=== PATIENT | male | born 1970 | race Two or more races ===

== ENCOUNTER 2019-07-18 16:53 | Inpatient (IN) | payer OTHER ==
[~2019-07-18] VITALS: Ht 167.6 cm; Wt 57.9 kg
[~2019-07-18 16:53] MED LIST: AMLO2.5T5 PO; BLOO1EAC91 XX; INSU100V8 SQ; [UNRECOGNIZED DRUG - CODE] XX; [UNRECOGNIZED DRUG - CODE] XX
--- NOTE | 2019-07-18 17:09 | NUR ---
DIAMOND SIZER: EKG COMPLETED.
--- NOTE | 2019-07-18 17:29 | NUR ---
FIRST CONTACT WITH PT. PT STATES "I WAS AT WORK AND I GOT BLURRED VISION, I AM DIABETIC, I MIGHT HAVE GOT DUST IN THEM" PT'S AOX4. RESPS EVEN AND UNLABORED. PT DENIES ANY OTHER SYMPTOMS. PT STATES "I CAN'T SEE ANY NOW. MY VISION WAS FINE YESTERDAY AND SUUDENLY I GOT BLURRED." BP/SPO2 MONITORS IN PLACE. CALL LIGHT WITHIN REACH. FAMILY AT BEDSIDE.
[2019-07-18] MEDS ORDERED: LABETALOL 5MG/ML, 20ML IVPush ONE (18:30)
[2019-07-18 18:43] LABS: BASOPHILS # (AUTO) 0.04 x10^3/uL (0-0.1); BASOPHILS % (AUTO) 1 % (0-1); EOSINOPHILS # (AUTO) 0.09 x10^3/uL (0-0.4); EOSINOPHILS % (AUTO) 1 % (1-7); LYMPHOCYTES # (AUTO) 1.13 x10^3/uL (1-3.4); LYMPHOCYTES % (AUTO) 18 % (22-44); MD NO; MEAN CORPUSCULAR HEMOGLOBIN 29.2 pg (27.5-34.5); MEAN CORPUSCULAR HGB CONC 33.2 g/dL (33.2-36.2); MEAN CORPUSCULAR VOLUME 87.9 fL (81-97); MONOCYTES # (AUTO) 0.35 x10^3/uL (0.2-0.8); MONOCYTES % (AUTO) 5 % (2-9); NEUTROPHILS # (AUTO) 4.78 x10^3/uL (1.8-6.8); NEUTROPHILS % (AUTO) 75 % (42-75); PLATELET COUNT 211 x10^3/uL (130-400); RED BLOOD COUNT 3.89 x10^6/uL (4.38-5.82); RED CELL DISTRIBUTION WIDTH 13.9 % (9.4-14.8)
[2019-07-18 18:54] LABS: ALBUMIN 3.5 g/dL (3.4-5.0); ANION GAP 4 mmol/L (5-15); CALCIUM 8.4 mg/dL (8.5-10.1); CHLORIDE 103 mmol/L (98-107)
--- NOTE | 2019-07-18 19:00 | NUR ---
REPORT GIVEN TO SONG REILLY.
[2019-07-18 19:10] LABS: ALANINE AMINOTRANSFERASE 29 U/L (12-78); ALKALINE PHOSPHATASE 102 U/L (45-117); BILIRUBIN,TOTAL 0.3 mg/dL (0.2-1.0); CREATININE 2.32 mg/dL (0.7-1.3); TOTAL PROTEIN 7.5 g/dL (6.4-8.2)
[2019-07-18] MEDS ORDERED: CALCIUM GLUCONATE 0.46MEQ/1ML IVPush ONE (19:30)
[2019-07-18] MEDS ORDERED: DEXTROSE 50%, 50ML SYRINGE IVPush ONE (19:30)
[2019-07-18] MEDS ORDERED: ENALAPRILAT 1.25 MG/ML, 2ML IV ONE (19:30)
[2019-07-18] MEDS ORDERED: SODIUM CHLORIDE 0.9%, 500ML IVBOLUS ONE (19:30)
[2019-07-18] MEDS ORDERED: INSULIN REGULAR 100 UNITS/ML, 3ML VIAL IVPush ONE (19:30)
[2019-07-18] MEDS ORDERED: ENALAPRILAT 1.25 MG/ML, 1ML ONE (19:36)
[2019-07-18] MEDS ORDERED: CALCIUM GLUCONATE 4.6 MEQ/10 ML ONE (19:36)
[2019-07-18] MEDS ORDERED: DEXTROSE 50%, 50ML SYRINGE ONE (19:37)
[2019-07-18] MEDS ORDERED: LABETALOL 5MG/ML, 20ML ONE (19:37)
[2019-07-18] MEDS ORDERED: INSULIN SINGLE DOSE, ER ONE (20:00)
[2019-07-18] MEDS ORDERED: ASPIRIN 325 MG TABLET EC PO ONE (20:00)
[2019-07-18] MEDS ORDERED: FLUORESCEIN OPHTHALMIC 1 MG STRIP ONE (20:04)
[2019-07-18] MEDS ORDERED: ASPIRIN 325 MG TABLET EC ONE (20:24)
[2019-07-18] MEDS ORDERED: PHENYLEPHRINE OPHTH 2.5%, 2.5ML EACHEYE ONE (20:30)
[2019-07-18] MEDS ORDERED: TROPICAMIDE OPHTH 1%, 15ML OP ONE (20:30)
[2019-07-18] MEDS ORDERED: SODIUM ZIRCONIUM CYCLOSILICATE 10 GM PO ONE (21:00)
[2019-07-18 22:17] VITALS: BP 144/83
[2019-07-18] MEDS: SODIUM CHLORIDE 0.9% 1,000 ML IV SCH (22:30)
[2019-07-18] MEDS ORDERED: hydrALAzine 20 MG/ML, 1ML IV PRN (22:30)
[2019-07-18] MEDS: DORZOLAMIDE OPHTH 2%, 10ML EACHEYE SCH (22:34)
[2019-07-18] MEDS: BRIMONIDINE TART. OPHTH 0.2%, 5ML EACHEYE SCH (22:56)
[2019-07-18] MEDS: TIMOLOL OPHTH 0.5%, 5ML EACHEYE SCH (22:56)
[2019-07-18] MEDS: LATANOPROST OPHTH 0.005%, 2.5ML EACHEYE SCH (22:56)
[2019-07-18] MEDS ORDERED: INSULIN GLARGINE 100 UNITS/ML, PEN SQ-INSULIN SCH (23:00)
[2019-07-18] MEDS ORDERED: BISACODYL 10 MG SUPP PR PRN (23:00)
[2019-07-18] MEDS ORDERED: ACETAMINOPHEN 325 MG TABLET PO PRN (23:00)
[2019-07-18] MEDS ORDERED: POLYETHYLENE GLYCOL 17 GM PACKET PO PRN (23:00)
[2019-07-18] MEDS ORDERED: ONDANSETRON ODT 4 MG PO PRN (23:00)
[2019-07-18] MEDS: HEPARIN 5,000 UNITS/ML, 1ML SQ SCH (23:40)
[2019-07-19 00:19] LABS: MICROSCOPIC AUTO
[2019-07-19 00:21] LABS: CULTURE INDICATED? NO
[2019-07-19 01:32] VITALS: BP 127/74
[2019-07-19] MEDS: ASPIRIN 81 MG TABLET EC PO SCH (05:22)
[2019-07-19] MEDS: SODIUM CHLORIDE 0.9% 1,000 ML IV SCH (05:23)
[2019-07-19 05:49] LABS: BASOPHILS # (AUTO) 0.02 x10^3/uL (0-0.1); BASOPHILS % (AUTO) 1 % (0-1); EOSINOPHILS # (AUTO) 0.14 x10^3/uL (0-0.4); EOSINOPHILS % (AUTO) 3 % (1-7); LYMPHOCYTES # (AUTO) 1.43 x10^3/uL (1-3.4); LYMPHOCYTES % (AUTO) 28 % (22-44); MD NO; MEAN CORPUSCULAR HEMOGLOBIN 29.1 pg (27.5-34.5); MEAN CORPUSCULAR HGB CONC 33.3 g/dL (33.2-36.2); MEAN CORPUSCULAR VOLUME 87.6 fL (81-97); MEAN PLATELET VOLUME 9.3 fL (7.4-10.4); MONOCYTES # (AUTO) 0.27 x10^3/uL (0.2-0.8); MONOCYTES % (AUTO) 5 % (2-9); NEUTROPHILS # (AUTO) 3.16 x10^3/uL (1.8-6.8); NEUTROPHILS % (AUTO) 63 % (42-75); PLATELET COUNT 187 x10^3/uL (130-400); RED BLOOD COUNT 3.61 x10^6/uL (4.38-5.82); RED CELL DISTRIBUTION WIDTH 14.3 % (9.4-14.8)
[2019-07-19 05:56] LABS: ANION GAP 5 mmol/L (5-15); CALCIUM 8.2 mg/dL (8.5-10.1); CHLORIDE 113 mmol/L (98-107)
[2019-07-19 06:01] LABS: CHOL/HDL RATIO 2.8; CHOLESTEROL, TOTAL 172 mg/dL (140-239); CREATININE 1.65 mg/dL (0.7-1.3); HDL CHOL % 36 % (26-37); HDL CHOLESTEROL (DIRECT) 62 mg/dL (40-60); TRIGLYCERIDES 142 mg/dL (50-200); VLDL CHOLESTEROL 28 mg/dL (0-25)
[2019-07-19 06:02] LABS: LDL CHOLESTEROL,CALCULATED 82 mg/dL (54-169); LDL/HDL RATIO 1.3 (0.5-3.0)
[2019-07-19 06:47] VITALS: BP 149/88
[2019-07-19] MEDS: INSULIN LISPRO 100 UNITS/ML, PEN SQ-INSULIN SCH ×4 (08:19→20:32)
[2019-07-19] MEDS ORDERED: DEXTROSE 4 GM TAB.CHEW PO PRN (08:30)
[2019-07-19] MEDS ORDERED: DEXTROSE 50%, 50ML SYRINGE IVPush PRN (08:30)
[2019-07-19] MEDS ORDERED: GLUCAGON 1 MG IM PRN (08:30)
[2019-07-19] MEDS: DORZOLAMIDE OPHTH 2%, 10ML EACHEYE SCH ×4 (08:59→20:30)
[2019-07-19] MEDS: SENNA/DOCUSATE TABLET PO SCH (09:09)
[2019-07-19] MEDS: TIMOLOL OPHTH 0.5%, 5ML EACHEYE SCH ×3 (09:09→20:31)
[2019-07-19] MEDS: HEPARIN 5,000 UNITS/ML, 1ML SQ SCH ×2 (09:09→17:28)
[2019-07-19] MEDS: BRIMONIDINE TART. OPHTH 0.2%, 5ML EACHEYE SCH ×3 (09:09→20:30)
[2019-07-19] MEDS: SODIUM CHLORIDE FLUSH 10ML SYR IVF SCH ×2 (09:09→20:31)
[2019-07-19] MEDS: AMLODIPINE 5 MG TABLET PO SCH ×2 (09:09→20:30)
[2019-07-19 12:31] LABS: CALCIUM 8.3 mg/dL (8.5-10.1)
[2019-07-19] MEDS ORDERED: GADOTERATE 7.5 MMOL/15 ML SYR ONE (12:40)
[2019-07-19 13:11] VITALS: BP 98/62
[2019-07-19 18:53] LABS: MICROSCOPIC AUTO
[2019-07-19 19:01] LABS: CREATININE,URINE RANDOM 42.8 mg/dL
[2019-07-19 20:21] VITALS: BP 160/92
[2019-07-19] MEDS: LATANOPROST OPHTH 0.005%, 2.5ML EACHEYE SCH (20:31)
[2019-07-19] MEDS: INSULIN GLARGINE 100 UNITS/ML, PEN SQ-INSULIN SCH (20:32)
[2019-07-20 01:12] VITALS: BP 112/68
[2019-07-20] MEDS: HEPARIN 5,000 UNITS/ML, 1ML SQ SCH ×3 (02:37→16:50)
[2019-07-20] MEDS: ASPIRIN 81 MG TABLET EC PO SCH (04:48)
[2019-07-20 05:37] LABS: BASOPHILS # (AUTO) 0.03 x10^3/uL (0-0.1); BASOPHILS % (AUTO) 1 % (0-1); EOSINOPHILS # (AUTO) 0.21 x10^3/uL (0-0.4); EOSINOPHILS % (AUTO) 4 % (1-7); LYMPHOCYTES # (AUTO) 1.87 x10^3/uL (1-3.4); LYMPHOCYTES % (AUTO) 34 % (22-44); MD NO; MEAN CORPUSCULAR HEMOGLOBIN 29.1 pg (27.5-34.5); MEAN CORPUSCULAR HGB CONC 33.4 g/dL (33.2-36.2); MEAN CORPUSCULAR VOLUME 87.2 fL (81-97); MEAN PLATELET VOLUME 9.1 fL (7.4-10.4); MONOCYTES # (AUTO) 0.41 x10^3/uL (0.2-0.8); MONOCYTES % (AUTO) 8 % (2-9); NEUTROPHILS # (AUTO) 3.01 x10^3/uL (1.8-6.8); NEUTROPHILS % (AUTO) 54 % (42-75); PLATELET COUNT 191 x10^3/uL (130-400); RED BLOOD COUNT 3.67 x10^6/uL (4.38-5.82)
[2019-07-20 05:47] LABS: ALBUMIN 2.7 g/dL (3.4-5.0); ANION GAP 4 mmol/L (5-15); CALCIUM 8.4 mg/dL (8.5-10.1); CHLORIDE 115 mmol/L (98-107)
[2019-07-20] MEDS: INSULIN LISPRO 100 UNITS/ML, PEN SQ-INSULIN SCH ×4 (07:48→20:35)
[2019-07-20] MEDS: BRIMONIDINE TART. OPHTH 0.2%, 5ML EACHEYE SCH ×3 (08:48→20:39)
[2019-07-20] MEDS: AMLODIPINE 5 MG TABLET PO SCH (08:48)
[2019-07-20] MEDS: DORZOLAMIDE OPHTH 2%, 10ML EACHEYE SCH ×3 (08:49→20:39)
[2019-07-20] MEDS: TIMOLOL OPHTH 0.5%, 5ML EACHEYE SCH ×3 (08:50→20:39)
[2019-07-20] MEDS: SENNA/DOCUSATE TABLET PO SCH (08:51)
[2019-07-20] MEDS: SODIUM CHLORIDE FLUSH 10ML SYR IVF SCH ×2 (08:51→20:40)
[2019-07-20 09:37] VITALS: BP 99/65
[2019-07-20] MEDS: LOSARTAN 50MG TABLET PO SCH ×2 (10:43→20:37)
[2019-07-20 15:23] VITALS: BP 163/99
[2019-07-20 19:49] VITALS: BP 148/90
[2019-07-20] MEDS: INSULIN GLARGINE 100 UNITS/ML, PEN SQ-INSULIN SCH (20:35)
[2019-07-20] MEDS: LATANOPROST OPHTH 0.005%, 2.5ML EACHEYE SCH (20:39)
[2019-07-20] MEDS ORDERED: INSULIN LISPRO 100 UNIT/ML, 3ML VIAL SQ ONE (22:00)
[2019-07-21] MEDS: HEPARIN 5,000 UNITS/ML, 1ML SQ SCH ×3 (01:12→17:01)
[2019-07-21 01:26] VITALS: BP 154/93
[2019-07-21] MEDS: ASPIRIN 81 MG TABLET EC PO SCH (05:28)
[2019-07-21 05:51] LABS: BASOPHILS # (AUTO) 0.03 x10^3/uL (0-0.1); BASOPHILS % (AUTO) 1 % (0-1); EOSINOPHILS # (AUTO) 0.14 x10^3/uL (0-0.4); EOSINOPHILS % (AUTO) 3 % (1-7); LYMPHOCYTES # (AUTO) 1.53 x10^3/uL (1-3.4); LYMPHOCYTES % (AUTO) 30 % (22-44); MD NO; MEAN CORPUSCULAR HEMOGLOBIN 29.2 pg (27.5-34.5); MEAN CORPUSCULAR HGB CONC 33.2 g/dL (33.2-36.2); MEAN CORPUSCULAR VOLUME 88.1 fL (81-97); MEAN PLATELET VOLUME 9.7 fL (7.4-10.4); MONOCYTES # (AUTO) 0.35 x10^3/uL (0.2-0.8); MONOCYTES % (AUTO) 7 % (2-9); NEUTROPHILS # (AUTO) 3.02 x10^3/uL (1.8-6.8); NEUTROPHILS % (AUTO) 60 % (42-75); PLATELET COUNT 190 x10^3/uL (130-400); RED BLOOD COUNT 3.71 x10^6/uL (4.38-5.82); RED CELL DISTRIBUTION WIDTH 13.9 % (9.4-14.8)
[2019-07-21 07:13] LABS: ALBUMIN 2.8 g/dL (3.4-5.0); ANION GAP 4 mmol/L (5-15); CALCIUM 8.4 mg/dL (8.5-10.1); CHLORIDE 111 mmol/L (98-107); CREATININE 1.61 mg/dL (0.7-1.3)
[2019-07-21] MEDS: INSULIN LISPRO 100 UNITS/ML, PEN SQ-INSULIN SCH ×4 (07:42→20:22)
[2019-07-21] MEDS: LOSARTAN 50MG TABLET PO SCH (07:43)
[2019-07-21] MEDS: DORZOLAMIDE OPHTH 2%, 10ML EACHEYE SCH ×3 (07:44→20:15)
[2019-07-21] MEDS: SODIUM CHLORIDE FLUSH 10ML SYR IVF SCH ×2 (07:44→20:15)
[2019-07-21] MEDS: TIMOLOL OPHTH 0.5%, 5ML EACHEYE SCH ×3 (07:44→20:14)
[2019-07-21] MEDS: BRIMONIDINE TART. OPHTH 0.2%, 5ML EACHEYE SCH ×3 (07:44→20:15)
[2019-07-21] MEDS: SENNA/DOCUSATE TABLET PO SCH (07:44)
[2019-07-21 07:50] VITALS: BP 184/110
[2019-07-21 10:03] VITALS: BP 83/54
[2019-07-21] MEDS ORDERED: SODIUM ZIRCONIUM CYCLOSILICATE 10 GM PO ONE (11:30)
[2019-07-21 14:15] VITALS: BP 124/79
[2019-07-21] MEDS: AMLODIPINE 10 MG TAB PO SCH (14:16)
[2019-07-21] MEDS ORDERED: FUROSEMIDE 40 MG/4 ML IV ONE (16:30)
[2019-07-21] MEDS: SODIUM BICARBONATE 650 MG TABLET PO SCH ×2 (16:56→20:14)
[2019-07-21 18:47] VITALS: BP 111/73
[2019-07-21] MEDS: LATANOPROST OPHTH 0.005%, 2.5ML EACHEYE SCH (20:15)
[2019-07-21] MEDS: INSULIN GLARGINE 100 UNITS/ML, PEN SQ-INSULIN SCH (20:23)
[2019-07-22 02:00] VITALS: BP 126/81
[2019-07-22] MEDS: HEPARIN 5,000 UNITS/ML, 1ML SQ SCH ×2 (02:16→07:41)
[2019-07-22 05:39] LABS: BASOPHILS # (AUTO) 0.04 x10^3/uL (0-0.1); BASOPHILS % (AUTO) 1 % (0-1); EOSINOPHILS # (AUTO) 0.11 x10^3/uL (0-0.4); EOSINOPHILS % (AUTO) 2 % (1-7); LYMPHOCYTES # (AUTO) 1.44 x10^3/uL (1-3.4); LYMPHOCYTES % (AUTO) 28 % (22-44); MD NO; MEAN CORPUSCULAR HEMOGLOBIN 29.4 pg (27.5-34.5); MEAN CORPUSCULAR HGB CONC 33.2 g/dL (33.2-36.2); MEAN CORPUSCULAR VOLUME 88.5 fL (81-97); MEAN PLATELET VOLUME 9.6 fL (7.4-10.4); MONOCYTES # (AUTO) 0.37 x10^3/uL (0.2-0.8); MONOCYTES % (AUTO) 7 % (2-9); NEUTROPHILS # (AUTO) 3.28 x10^3/uL (1.8-6.8); NEUTROPHILS % (AUTO) 63 % (42-75); PLATELET COUNT 189 x10^3/uL (130-400); RED BLOOD COUNT 3.84 x10^6/uL (4.38-5.82); RED CELL DISTRIBUTION WIDTH 13.9 % (9.4-14.8)
[2019-07-22 05:42] LABS: ANION GAP 6 mmol/L (5-15); CALCIUM 8.7 mg/dL (8.5-10.1); CHLORIDE 107 mmol/L (98-107)
[2019-07-22] MEDS: ASPIRIN 81 MG TABLET EC PO SCH (06:08)
[2019-07-22] MEDS: SODIUM BICARBONATE 650 MG TABLET PO SCH ×3 (06:08→16:15)
[2019-07-22] MEDS: AMLODIPINE 10 MG TAB PO SCH (07:41)
[2019-07-22] MEDS: TIMOLOL OPHTH 0.5%, 5ML EACHEYE SCH ×2 (07:42→16:15)
[2019-07-22] MEDS: DORZOLAMIDE OPHTH 2%, 10ML EACHEYE SCH ×2 (07:42→16:15)
[2019-07-22] MEDS: INSULIN LISPRO 100 UNITS/ML, PEN SQ-INSULIN SCH ×3 (07:42→16:15)
[2019-07-22] MEDS: SENNA/DOCUSATE TABLET PO SCH (07:43)
[2019-07-22] MEDS: BRIMONIDINE TART. OPHTH 0.2%, 5ML EACHEYE SCH ×2 (07:43→16:15)
[2019-07-22] MEDS: SODIUM CHLORIDE FLUSH 10ML SYR IVF SCH (07:43)
[2019-07-22 07:48] VITALS: BP 163/93
[2019-07-22 12:33] VITALS: BP 128/84
[2019-07-22] MEDS ORDERED: SODIUM ZIRCONIUM CYCLOSILICATE 10 GM PO SCH (14:00)
[2019-07-22] MEDS ORDERED: TIMO5DRO5 EACHEYE (14:39)
[2019-07-22] MEDS ORDERED: DORZ10DR26 EACHEYE (14:39)
[2019-07-22] MEDS ORDERED: SODI10PO PO (14:39)
[2019-07-22] MEDS ORDERED: LATA2.5D3 EACHEYE (14:39)
[2019-07-22] MEDS ORDERED: BRIM5DRO4 EACHEYE (14:39)
[2019-07-22] MEDS ORDERED: ASPI81TA45 PO (14:39)
[2019-07-22] MEDS ORDERED: AMLO10TA8 PO (14:39)
== END 2019-07-22 16:32 | disposition home or self-care (01) | DRG 683 ==
LOC: ED 21:03 → 4WST 22:12 → DCLOUNGE 07-22 16:21
PROVIDERS: ADMIT Hospitalist; ATTEND Family Medicine
DX: N17.9 Acute kidney failure, unspecified (principal); E87.1 Hypo-osmolality and hyponatremia; I16.1 Hypertensive emergency; D64.9 Anemia, unspecified; E87.5 Hyperkalemia; M25.461 Effusion, right knee; E11.65 Type 2 diabetes mellitus with hyperglycemia; E11.311 Type 2 diabetes mellitus with unspecified diabetic retinopathy with macular edema; E11.22 Type 2 diabetes mellitus with diabetic chronic kidney disease; H40.9 Unspecified glaucoma; I12.9 Hypertensive chronic kidney disease with stage 1 through stage 4 chronic kidney disease, or unspecified chronic kidney disease; M25.561 Pain in right knee; R80.9 Proteinuria, unspecified; N18.3 Chronic kidney disease, stage 3 (moderate); N25.0 Renal osteodystrophy; R31.29 Other microscopic hematuria; Z79.4 Long term (current) use of insulin; Z83.3 Family history of diabetes mellitus; Z87.442 Personal history of urinary calculi
CPT/HCPCS: 36415; 70450; 70553; 80048; 80053; 80061; 80069; 81001; 82088; 82306; 82310; 82436; 82570; 82728; 82947; 82962; 83036; 83540; 83550; 83970; 84132; 84133; 84156; 84244; 84300; 84443; 85025; 93005; 93975; 96361; 96374; 96375; G0378; J1644; J1815; J1940; A9575; J7030; J7040

== ENCOUNTER → 2020-01-06 | Outpatient (CLI) | payer OTHER ==
[~2020-01-06] MED LIST changes: +AMLO10TA8 PO; +ASPI81TA45 PO; +BRIM5DRO2 EACHEYE; +BRIM5DRO4 EACHEYE; +DORZ10DR26 EACHEYE; +LATA2.5D3 EACHEYE; +POTA10TA31 PO; +SODI10PO PO; +TIMO5DRO5 EACHEYE; +TRAM50TA2 PO
[2020-01-06 15:13] LABS: BASOPHILS # (AUTO) 0.02 x10^3/uL (0-0.1); BASOPHILS % (AUTO) 0 % (0-1); EOSINOPHILS % (AUTO) 1 % (1-7); LYMPHOCYTES # (AUTO) 1.23 x10^3/uL (1-3.4); LYMPHOCYTES % (AUTO) 18 % (22-44); MD NO; MEAN CORPUSCULAR HEMOGLOBIN 27.8 pg (27.5-34.5); MEAN CORPUSCULAR HGB CONC 33.2 g/dL (33.2-36.2); MEAN CORPUSCULAR VOLUME 83.8 fL (81-97); MEAN PLATELET VOLUME 9.7 fL (7.4-10.4); MONOCYTES # (AUTO) 0.08 x10^3/uL (0.2-0.8); MONOCYTES % (AUTO) 1 % (2-9); NEUTROPHILS # (AUTO) 5.52 x10^3/uL (1.8-6.8); NEUTROPHILS % (AUTO) 80 % (42-75); PLATELET COUNT 158 x10^3/uL (130-400); RED BLOOD COUNT 3.24 x10^6/uL (4.38-5.82); RED CELL DISTRIBUTION WIDTH 14.8 % (9.4-14.8)
[2020-01-06 15:26] LABS: ALBUMIN 2.7 g/dL (3.4-5.0); ANION GAP 4 mmol/L (5-15); CALCIUM 8.1 mg/dL (8.5-10.1); CHLORIDE 112 mmol/L (98-107)
[2020-01-06 15:29] LABS: ALANINE AMINOTRANSFERASE 23 U/L (12-78); ALKALINE PHOSPHATASE 88 U/L (45-117); BILIRUBIN,TOTAL 0.2 mg/dL (0.2-1.0); CREATININE 2.44 mg/dL (0.7-1.3); TOTAL PROTEIN 6.6 g/dL (6.4-8.2)
[2020-01-06 15:38] LABS: INTERNATIONAL NORMALIZED RATIO 0.96 (0.93-1.1); PROTHROMBIN TIME 9.9 Seconds (9.6-11.5)
== END | disposition home or self-care (01) ==
LOC: STAR 14:05
PROVIDERS: ATTEND Orthopaedic Surgery
DX: U07.1 COVID-19 (principal); Z01.818 Encounter for other preprocedural examination; M17.11 Unilateral primary osteoarthritis, right knee; M25.561 Pain in right knee
CPT/HCPCS: 36415; 80053; 83036; 85025; 85610; 85730; 87081; 87635; 93005

== ENCOUNTER → 2020-02-03 | Outpatient (CLI) | payer OTHER | END | disposition home or self-care (01) | LOC: STAR 11:04 | PROVIDERS: ATTEND Anesthesiology | DX: Z01.812 Encounter for preprocedural laboratory examination (principal); Z20.828 Contact with and (suspected) exposure to other viral communicable diseases | CPT/HCPCS: 36415; 87635 ==

== ENCOUNTER 2020-04-19 11:31 | Inpatient (IN) | payer OTHER ==
[~2020-04-19] VITALS: Ht 167.6 cm; Wt 83.6 kg
[~2020-04-19 11:31] MED LIST changes: +AMLO-211 PO; -AMLO10TA8 PO; -LATA2.5D3 EACHEYE; +LATA2.5D4 EACHEYE
--- NOTE | 2020-04-19 12:00 | NUR ---
PIV PLACED. LABS DRAWN. MD AT BEDSIDE FOR ASSESSMENT.
[2020-04-19 12:46] LABS: ANION GAP 5 mmol/L (5-15); CHLORIDE 116 mmol/L (98-107); CREATININE 1.95 mg/dL (0.7-1.3)
[2020-04-19] MEDS ORDERED: INSULIN REGULAR 100 UNITS/ML, 3ML VIAL IVPush ONE (13:00)
[2020-04-19] MEDS ORDERED: DEXTROSE 50%, 50ML SYRINGE IVPush ONE ×2 (13:00→16:00)
[2020-04-19] MEDS ORDERED: FUROSEMIDE 40 MG/4 ML IVPush ONE (13:00)
[2020-04-19] MEDS ORDERED: ALBUTEROL 0.5%, 20ML NPPB ONE (13:00)
[2020-04-19] MEDS ORDERED: SODIUM BICARB 8.4%, 50ML SYRINGE IVPush ONE (13:00)
[2020-04-19] MEDS ORDERED: CALCIUM GLUCONATE 4.6 MEQ/10 ML IVPush ONE (13:30)
[2020-04-19] MEDS ORDERED: SODIUM BICARB 8.4%, 50ML SYRINGE ONE (13:34)
[2020-04-19] MEDS ORDERED: ALBUTEROL SULFATE 2.5MG/0.5ML ONE (13:34)
[2020-04-19] MEDS ORDERED: CALCIUM GLUCONATE 4.6 MEQ/10 ML ONE (13:34)
[2020-04-19] MEDS ORDERED: FUROSEMIDE 40 MG/4 ML ONE (13:34)
[2020-04-19] MEDS ORDERED: DEXTROSE 50%, 50ML SYRINGE ONE ×2 (13:34→15:48)
[2020-04-19] MEDS ORDERED: INSULIN LISPRO SINGLE DOSE, ER SQ-INSULIN ONE (13:35)
[2020-04-19] MEDS ORDERED: SODIUM ZIRCONIUM CYCLOSILICATE 10 GM PO ONE (13:45)
--- NOTE | 2020-04-19 14:06 | NUR ---
PT AMBULATED TO RESTROOM WITH STEADY GAIT.
--- NOTE | 2020-04-19 15:57 | NUR ---
PT FSBG 38. ORDER RECEIVED FOR DEXTROSE 50%. BELT LOOP CUTTER PER JUL. RECHECK FSBG 211. ADMITTING HOSPITALIST NOTIFIED.
--- NOTE | 2020-04-19 16:33 | NUR ---
ERICK ORELLANA DELIVERED. HOSPITALIST AT BEDSIDE.
[2020-04-19] MEDS ORDERED: hydrALAzine 20 MG/ML, 1ML IVPush PRN (17:00)
[2020-04-19] MEDS ORDERED: POLYETHYLENE GLYCOL 17 GM PACKET PO PRN (17:00)
[2020-04-19] MEDS ORDERED: ONDANSETRON ODT 4 MG PO PRN (17:00)
[2020-04-19] MEDS ORDERED: HYDROcodone/APAP 5/325 TABLET PO PRN (17:00)
[2020-04-19] MEDS ORDERED: ACETAMINOPHEN 325 MG TABLET PO PRN (17:00)
[2020-04-19] MEDS ORDERED: ONDANSETRON 2MG/ML, 2ML IVPush PRN (17:00)
[2020-04-19] MEDS ORDERED: MELATONIN 5 MG TABLET PO PRN (17:00)
[2020-04-19] MEDS ORDERED: DOCUSATE 100 MG CAPSULE PO PRN (17:00)
--- NOTE | 2020-04-19 17:02 | NUR ---
PT AMBULATED TO RESTROOM WITH STEADY GAIT. PT ATE 100% MEAL. PT TRANSFERRED TO HOSPITAL BED FOR MEDTELE HOLD.
--- NOTE | 2020-04-19 17:13 | NUR ---
REPORT GIVEN TO SUKHI REILLY.
[2020-04-19 17:26] LABS: ANION GAP 6 mmol/L (5-15); CALCIUM 8.1 mg/dL (8.5-10.1); CHLORIDE 114 mmol/L (98-107); CREATININE 1.95 mg/dL (0.7-1.3)
[2020-04-19 17:35] VITALS: BP 190/104
[2020-04-19 17:45] VITALS: BP 186/110
[2020-04-19] MEDS: INSULIN GLARGINE 100 UNITS/ML, PEN SQ-INSULIN SCH (17:56)
[2020-04-19] MEDS: niFEDipine ER 30 MG TABLET.ER PO SCH ×2 (18:13→20:23)
[2020-04-19] MEDS: HEPARIN 5,000 UNITS/ML, 1ML SQ SCH (18:13)
[2020-04-19 19:40] LABS: MICROSCOPIC INDICATED
[2020-04-19 19:49] VITALS: BP 162/95
[2020-04-19] MEDS: SODIUM BICARBONATE 650 MG TABLET PO SCH (20:23)
[2020-04-19] MEDS: INSULIN LISPRO 100 UNITS/ML, PEN SQ-INSULIN SCH (21:00)
[2020-04-19] MEDS ORDERED: niFEDipine ER 30 MG TABLET.ER PO SCH (21:00)
[2020-04-19] MEDS ORDERED: INSULIN LISPRO 100 UNIT/ML, 3ML VIAL SQ-INSULIN ONE (21:40)
[2020-04-20 01:00] VITALS: BP 97/64
[2020-04-20] MEDS ORDERED: DEXTROSE 50%, 50ML VIAL IVPush ONE (01:00)
[2020-04-20] MEDS ORDERED: DEXTROSE 50%, 50ML SYRINGE ONE (01:01)
[2020-04-20] MEDS: HEPARIN 5,000 UNITS/ML, 1ML SQ SCH ×3 (01:19→18:41)
[2020-04-20] MEDS ORDERED: DEXTROSE 50%, 50ML SYRINGE IVPush ONE ×2 (01:30→07:00)
[2020-04-20 01:48] VITALS: BP 108/68
[2020-04-20 05:18] LABS: BASOPHILS % (AUTO) 1 % (0-1); EOSINOPHILS % (AUTO) 2 % (1-7); LYMPHOCYTES % (AUTO) 21 % (22-44); MEAN CORPUSCULAR HEMOGLOBIN 27.5 pg (27.5-34.5); MEAN CORPUSCULAR HGB CONC 32.5 g/dL (33.2-36.2); MEAN PLATELET VOLUME 9.2 fL (7.4-10.4); MONOCYTES % (AUTO) 7 % (2-9); NEUTROPHILS % (AUTO) 68 % (42-75); PLATELET COUNT 199 x10^3/uL (130-400); RED BLOOD COUNT 3.75 x10^6/uL (4.38-5.82); RED CELL DISTRIBUTION WIDTH 16.4 % (9.4-14.8)
[2020-04-20 05:30] LABS: MD NO
[2020-04-20 05:33] LABS: CHLORIDE 110 mmol/L (98-107)
[2020-04-20 05:49] LABS: ANION GAP 3 mmol/L (5-15); CALCIUM 8.7 mg/dL (8.5-10.1); CREATININE 2.15 mg/dL (0.7-1.3)
[2020-04-20] MEDS ORDERED: INSULIN REGULAR 100 UNITS/ML, 3ML VIAL SQ-INSULIN ONE (06:30)
[2020-04-20] MEDS ORDERED: CALCIUM GLUCONATE 0.46MEQ/1ML IVPush ONE (06:30)
[2020-04-20] MEDS ORDERED: TORSEMIDE 20 MG TABLET ONE (06:33)
[2020-04-20] MEDS ORDERED: SODIUM ZIRCONIUM CYCLOSILICATE 10 GM ONE (06:34)
[2020-04-20] MEDS ORDERED: INSULIN REGULAR 100 UNITS/ML, 3ML VIAL IVPush ONE (07:00)
[2020-04-20 07:37] VITALS: BP 110/78
[2020-04-20] MEDS: PANTOPRAZOLE 40MG TABLET PO SCH (08:52)
[2020-04-20] MEDS: SODIUM BICARBONATE 650 MG TABLET PO SCH (08:52)
[2020-04-20] MEDS ORDERED: TORSEMIDE 20 MG TABLET PO SCH (09:00)
[2020-04-20 09:02] VITALS: BP 133/78
[2020-04-20] MEDS: niFEDipine ER 30 MG TABLET.ER PO SCH ×2 (09:09→20:48)
[2020-04-20] MEDS: INSULIN LISPRO 100 UNITS/ML, PEN SQ-INSULIN SCH ×4 (09:57→20:47)
[2020-04-20] MEDS ORDERED: FUROSEMIDE 40 MG/4 ML IV ONE (10:00)
[2020-04-20] MEDS ORDERED: SODIUM ZIRCONIUM CYCLOSILICATE 10 GM PO ONE (11:00)
[2020-04-20] MEDS: SODIUM BICARBONATE 8.4% 75 MEQ in SODIUM CHLORIDE 0.45% 1,000 ML IV SCH (11:07)
[2020-04-20] MEDS: INSULIN GLARGINE 100 UNITS/ML, PEN SQ-INSULIN SCH (11:13)
[2020-04-20 13:55] VITALS: BP 101/63
[2020-04-20 20:09] VITALS: BP 111/66
[2020-04-21 01:00] VITALS: BP 129/79
[2020-04-21] MEDS: HEPARIN 5,000 UNITS/ML, 1ML SQ SCH ×3 (03:42→20:19)
[2020-04-21 05:07] LABS: BASOPHILS % (AUTO) 1 % (0-1); EOSINOPHILS % (AUTO) 3 % (1-7); LYMPHOCYTES % (AUTO) 31 % (22-44); MEAN CORPUSCULAR HEMOGLOBIN 27.3 pg (27.5-34.5); MEAN CORPUSCULAR HGB CONC 32.5 g/dL (33.2-36.2); MEAN PLATELET VOLUME 9.2 fL (7.4-10.4); MONOCYTES % (AUTO) 8 % (2-9); NEUTROPHILS % (AUTO) 57 % (42-75); PLATELET COUNT 183 x10^3/uL (130-400); RED BLOOD COUNT 3.92 x10^6/uL (4.38-5.82); RED CELL DISTRIBUTION WIDTH 16.7 % (9.4-14.8)
[2020-04-21 05:15] LABS: ANION GAP 4 mmol/L (5-15); CALCIUM 8.1 mg/dL (8.5-10.1); CHLORIDE 110 mmol/L (98-107)
[2020-04-21 05:16] LABS: CREATININE 2.23 mg/dL (0.7-1.3)
[2020-04-21 05:27] LABS: MD NO
[2020-04-21 07:22] VITALS: BP 106/69
[2020-04-21] MEDS: INSULIN GLARGINE 100 UNITS/ML, PEN SQ-INSULIN SCH (07:48)
[2020-04-21] MEDS: SODIUM ZIRCONIUM CYCLOSILICATE 10 GM PO SCH (07:49)
[2020-04-21] MEDS: INSULIN LISPRO 100 UNITS/ML, PEN SQ-INSULIN SCH ×4 (07:49→20:34)
[2020-04-21] MEDS: PANTOPRAZOLE 40MG TABLET PO SCH (07:50)
[2020-04-21] MEDS: niFEDipine ER 30 MG TABLET.ER PO SCH ×2 (07:50→20:18)
[2020-04-21] MEDS: TORSEMIDE 20 MG TABLET PO SCH (07:50)
[2020-04-21] MEDS: SODIUM BICARBONATE 8.4% 75 MEQ in SODIUM CHLORIDE 0.45% 1,000 ML IV SCH (09:15)
[2020-04-21 12:37] VITALS: BP 108/74
[2020-04-21 19:52] VITALS: BP 116/77
[2020-04-22 00:42] VITALS: BP 150/88
[2020-04-22] MEDS: SODIUM BICARBONATE 8.4% 75 MEQ in SODIUM CHLORIDE 0.45% 1,000 ML IV SCH (05:33)
[2020-04-22] MEDS: HEPARIN 5,000 UNITS/ML, 1ML SQ SCH ×2 (05:34→11:00)
[2020-04-22 05:45] LABS: BASOPHILS % (AUTO) 2 % (0-1); EOSINOPHILS % (AUTO) 2 % (1-7); LYMPHOCYTES % (AUTO) 27 % (22-44); MEAN CORPUSCULAR HGB CONC 33.3 g/dL (33.2-36.2); MONOCYTES % (AUTO) 7 % (2-9); NEUTROPHILS % (AUTO) 63 % (42-75); PLATELET COUNT 188 x10^3/uL (130-400); RED BLOOD COUNT 3.64 x10^6/uL (4.38-5.82); RED CELL DISTRIBUTION WIDTH 16.3 % (9.4-14.8)
[2020-04-22 05:54] LABS: ALBUMIN 3.1 g/dL (3.4-5.0); ANION GAP 4 mmol/L (5-15); CALCIUM 8.1 mg/dL (8.5-10.1); CHLORIDE 107 mmol/L (98-107)
[2020-04-22 05:58] LABS: MD NO
[2020-04-22 06:00] LABS: ALANINE AMINOTRANSFERASE 22 U/L (12-78); ALKALINE PHOSPHATASE 104 U/L (45-117); BILIRUBIN,TOTAL 0.2 mg/dL (0.2-1.0); CREATININE 2.26 mg/dL (0.7-1.3); TOTAL PROTEIN 6.9 g/dL (6.4-8.2)
[2020-04-22 08:15] VITALS: BP 119/82
[2020-04-22] MEDS: INSULIN LISPRO 100 UNITS/ML, PEN SQ-INSULIN SCH ×2 (08:18→11:00)
[2020-04-22] MEDS: PANTOPRAZOLE 40MG TABLET PO SCH (08:18)
[2020-04-22] MEDS: SODIUM ZIRCONIUM CYCLOSILICATE 10 GM PO SCH (08:19)
[2020-04-22] MEDS: TORSEMIDE 20 MG TABLET PO SCH (08:19)
[2020-04-22] MEDS: niFEDipine ER 30 MG TABLET.ER PO SCH (08:19)
[2020-04-22] MEDS: INSULIN GLARGINE 100 UNITS/ML, PEN SQ-INSULIN SCH (08:20)
[2020-04-22 12:34] VITALS: BP 116/80
[2020-04-22] MEDS ORDERED: NIFE30TA13 PO (13:24)
[2020-04-22] MEDS ORDERED: TORS20TA2 PO (13:24)
[2020-04-22] MEDS ORDERED: SODI10PO PO (13:31)
[2020-04-22] MEDS ORDERED: FLU VACC QS2020-21(6MOS UP)/PF 60MCG/0.5 ML SYR IM-VACC ONE (14:00)
== END 2020-04-22 16:04 | disposition home health service (06) | DRG 641 ==
LOC: ED 12:14 → EDIP 13:14 → 5SO 17:31
PROVIDERS: ADMIT Family Medicine; ATTEND Family Medicine
DX: E87.5 Hyperkalemia (principal); I12.9 Hypertensive chronic kidney disease with stage 1 through stage 4 chronic kidney disease, or unspecified chronic kidney disease; D63.1 Anemia in chronic kidney disease; E11.22 Type 2 diabetes mellitus with diabetic chronic kidney disease; E11.649 Type 2 diabetes mellitus with hypoglycemia without coma; E11.65 Type 2 diabetes mellitus with hyperglycemia; E87.2 Acidosis; H54.62 Unqualified visual loss, left eye, normal vision right eye; Z96.651 Presence of right artificial knee joint; R03.0 Elevated blood-pressure reading, without diagnosis of hypertension; N18.30 Chronic kidney disease, stage 3 unspecified; Z79.4 Long term (current) use of insulin; Z79.899 Other long term (current) drug therapy; Z83.3 Family history of diabetes mellitus; Z87.442 Personal history of urinary calculi
CPT/HCPCS: 36415; 80048; 80053; 80069; 81001; 82947; 82962; 83036; 83735; 84132; 84443; 85025; 90686; 93005; 94640; 96374; 96375; 99285; G0378; J0610; J1644; J1815; J1940